=== PATIENT | female | born 1965 | race African-American/Black ===

== ENCOUNTER 2018-03-31 20:57 | Inpatient (IN) | payer MEDICAID ==
[~2018-03-31] VITALS: Ht 165.1 cm; Wt 103.4 kg
[2018-04-01] MEDS ORDERED: CEFTRIAXONE 1 G PREMIX 50 ML IV ONE (02:45)
[2018-04-01] MEDS ORDERED: SODIUM CHLORIDE 0.9% 1000ML BAG (SEPSIS BOLUS) IV ONE (02:45)
[2018-04-01] MEDS ORDERED: LIDOCAINE 1%/EPI 1:100,000 10 ML VIAL IJ ONE (03:15)
[2018-04-01 03:52] LABS: HEMATOCRIT. 33.3 % (36.0-48.0); HEMOGLOBIN. 10.7 g/dL (12.0-16.0); MEAN CORPUSCULAR HEMOGLOBIN 26.8 pg (28.0-32.0); MEAN CORPUSCULAR VOLUME 83.3 fL (81.0-99.0); MEAN PLATELET VOLUME 9.4 fl (7.4-10.4); PLATELET 249 x1000/uL (130-400); RED CELL DISTRIBUTION WIDTH 13.7 % (11.6-14.6)
[2018-04-01 03:56] LABS: CHLORIDE 97 mEq/L (98-107); INR 1.3; PROTHROMBIN TIME 13.1 sec (9.1-11.1)
[2018-04-01 03:56] LABS: CLARITY URINE TURBID (CLEAR); KETONES URINE TRACE (NEGATIVE); LEUKOCYTE ESTERASE URINE 3+ (NEGATIVE); NITRITE URINE NEGATIVE (NEGATIVE); OCCULT BLOOD URINE 2+ (NEGATIVE); PROTEIN URINE 1+ (NEGATIVE); SPECIFIC GRAVITY URINE 1.019 (1.005-1.030)
[2018-04-01 04:04] LABS: COLOR URINE YELLOW (YELLOW)
[2018-04-01] MEDS ORDERED: METRONIDAZOLE 500 MG PREMIX 100 ML IV ONE (04:45)
[2018-04-01 04:56] LABS: PLATELET ESTIMATE NORMAL
[2018-04-01] MEDS ORDERED: ACETAMINOPHEN 325MG TABLET PO PRN (10:45)
[2018-04-01] MEDS ORDERED: DEXTROSE 50% WATER 50ML SYRINGE IV PRN ×2 (10:45)
[2018-04-01] MEDS ORDERED: CEFTRIAXONE 1,000 MG in DEXTROSE 5% WATER 50 ML IV SCH (10:45)
[2018-04-01] MEDS ORDERED: ONDANSETRON 4MG/5ML UDC PO SCH (11:00)
[2018-04-01] MEDS ORDERED: PNEUMOCOCCAL 23-VAL P-SAC VAC 0.5 ML IM ONE (11:30)
[2018-04-01] MEDS: HYDROCODONE/ACETAMINOPHEN 5/325MG TABLET PO PRN ×2 (11:52→20:24)
[2018-04-01] MEDS: INSULIN LISPRO 100 UNITS/ML SUBCUT SCH ×3 (12:50→20:33)
[2018-04-01] MEDS: BLOOD SUGAR DIAGNOSTIC STRIP TEST SCH ×3 (13:04→20:34)
[2018-04-01] MEDS: DOCUSATE SODIUM 100MG CAPSULE PO SCH ×2 (14:00→20:24)
[2018-04-01 15:12] LABS: *AMPHETAMINES SCREEN URINE NEGATIVE (NEGATIVE); *BARBITURATES SCREEN URINE NEGATIVE (NEGATIVE); *BENZODIAZEPINES SCREEN URINE NEGATIVE (NEGATIVE); *COCAINE SCREEN URINE NEGATIVE (NEGATIVE); CANNABINOID URINE SCREEN NEGATIVE (NEGATIVE); METHADONE URINE SCREEN NEGATIVE (NEGATIVE); OPIATES URINE SCREEN NEGATIVE (NEGATIVE)
[2018-04-01 15:13] LABS: PHENCYCLIDINE URINE SCREEN NEGATIVE (NEGATIVE)
[2018-04-01 16:00] VITALS: BP 120/68
[2018-04-01] MEDS ORDERED: VANCOMYCIN 2,000 MG in SODIUM CHLORIDE 0.9% 500 ML IV SCH (17:00)
[2018-04-01] MEDS: SODIUM CHLORIDE 0.45% 1,000 ML IV SCH (17:54)
[2018-04-01 20:00] VITALS: BP 123/52
[2018-04-02] VITALS: BP 102/47
[2018-04-02] MEDS: CEFTRIAXONE 1 G PREMIX 50 ML IV SCH ×2 (00:40→23:18)
[2018-04-02] MEDS: SODIUM CHLORIDE 0.45% 1,000 ML IV SCH ×2 (00:40→13:51)
[2018-04-02 04:00] VITALS: BP 123/49
[2018-04-02 06:53] LABS: HEMATOCRIT. 31.7 % (36.0-48.0); HEMOGLOBIN. 10.1 g/dL (12.0-16.0); MEAN CORPUSCULAR HEMOGLOBIN 26.6 pg (28.0-32.0); MEAN CORPUSCULAR VOLUME 83.4 fL (81.0-99.0); MEAN PLATELET VOLUME 8.9 fl (7.4-10.4); PLATELET 254 x1000/uL (130-400); RED CELL DISTRIBUTION WIDTH 14.3 % (11.6-14.6)
[2018-04-02 07:55] VITALS: BP 131/72
[2018-04-02] MEDS: BLOOD SUGAR DIAGNOSTIC STRIP TEST SCH ×4 (08:17→20:35)
[2018-04-02] MEDS: INSULIN LISPRO 100 UNITS/ML SUBCUT SCH ×4 (08:24→21:39)
[2018-04-02] MEDS: DOCUSATE SODIUM 100MG CAPSULE PO SCH ×2 (08:32→17:29)
[2018-04-02] MEDS: VANCOMYCIN 1 G PREMIX 200 ML IV SCH (12:00)
[2018-04-02] MEDS: HYDROCODONE/ACETAMINOPHEN 5/325MG TABLET PO PRN (13:47)
[2018-04-02 18:52] LABS: PLATELET ESTIMATE NORMAL
[2018-04-02 20:00] VITALS: BP 142/72
[2018-04-02] MEDS: INSULIN GLARGINE UD 100 UNITS/ML SYR SUBCUT SCH (21:40)
[2018-04-03] VITALS: BP 135/55
[2018-04-03] MEDS: SODIUM CHLORIDE 0.45% 1,000 ML IV SCH (02:59)
[2018-04-03 04:00] VITALS: BP 140/56
[2018-04-03] MEDS: HYDROCODONE/ACETAMINOPHEN 5/325MG TABLET PO PRN ×2 (04:35→10:47)
[2018-04-03] MEDS: VANCOMYCIN 1 G PREMIX 200 ML IV SCH (05:07)
[2018-04-03] MEDS: BLOOD SUGAR DIAGNOSTIC STRIP TEST SCH ×2 (07:58→12:22)
[2018-04-03 08:00] VITALS: BP 142/57
[2018-04-03 08:13] LABS: *CREATININE RANDOM URINE 252.4 mg/dL (Not Estab.); MICROALBUMIN RANDOM URINE 47.1 ug/mL (Not Estab.)
[2018-04-03] MEDS: DOCUSATE SODIUM 100MG CAPSULE PO SCH (08:15)
[2018-04-03] MEDS: INSULIN LISPRO 100 UNITS/ML SUBCUT SCH ×2 (08:16→13:01)
[2018-04-03] MEDS: INSULIN GLARGINE UD 100 UNITS/ML SYR SUBCUT SCH (10:11)
[2018-04-03 12:00] VITALS: BP 136/62
[2018-04-03 13:47] VITALS: BP 132/66
[2018-04-04 13:06] LABS: HIV SCREEN 4G Non Reactive (Non Reactive)
== END 2018-04-03 15:20 | disposition home or self-care (01) | DRG 720 ==
LOC: ER 20:57 → 6EST 04-01 05:21 → EDBEDREQ 04-01 05:24 → EDBEDREQSVC 04-01 05:24 → EDBEDREQTM 04-01 05:24 → ENRESERV 04-01 08:22
PROVIDERS: ADMIT Internal Medicine; ATTEND Internal Medicine
DX: A41.9 Sepsis, unspecified organism (principal); N17.0 Acute kidney failure with tubular necrosis; E43 Unspecified severe protein-calorie malnutrition; E87.2 Acidosis; E87.1 Hypo-osmolality and hyponatremia; E66.01 Morbid (severe) obesity due to excess calories; D64.9 Anemia, unspecified; E11.9 Type 2 diabetes mellitus without complications; E78.5 Hyperlipidemia, unspecified; N39.0 Urinary tract infection, site not specified; L03.317 Cellulitis of buttock; L02.31 Cutaneous abscess of buttock; E78.00 Pure hypercholesterolemia, unspecified; E87.8 Other disorders of electrolyte and fluid balance, not elsewhere classified; F17.200 Nicotine dependence, unspecified, uncomplicated; K59.00 Constipation, unspecified; Z90.710 Acquired absence of both cervix and uterus; Z71.6 Tobacco abuse counseling; Z71.3 Dietary counseling and surveillance; Z68.37 Body mass index [BMI] 37.0-37.9, adult
CPT/HCPCS: 36415; 71045; 76770; 80048; 80305; 82043; 82570; 82962; 83605; 83735; 84100; 84145; 84484; 87389; 90732; 93005; 96365; 96366; 96368; 99291; C1893; J0696; J1815; J3370; J3490; J7030; J7040